=== PATIENT | female | born 1970 | race Caucasian/White ===

== ENCOUNTER 2018-02-08 12:28 | Emergency (ER) | payer OTHER ==
[2018-02-08 12:36] VITALS: BP 156/88; PULSE 78; RESP 18; TEMP 98.2
--- NOTE | 2018-02-08 13:25 | XR ---
Left forearm and left elbow HISTORY: Trauma and pain 2 views of the left forearm correlated to left elbow same date No comparisons There is an ossific density present at the level of the lateral aspect of the elbow joint, lucency pr esent through the radial head is noted. Suspect there is a joint effusion. No dislocation. IMPRESSION: Displaced comminuted radial head fracture.
[2018-02-08] MEDS ORDERED: ACET/COD 300 MG/30 MG STARTER PACK 6 TAB BTL PO STA (13:53)
--- NOTE | 2018-02-08 13:54 | ED ---
Upper Extremity HPI - General Chief Complaint: Extremity Injury, Upper Stated Complaint: Fell on arm Time Seen by Provider: 02/08/18 12:37 Source: patient Mode of arrival: ambulatory Limitations: no limitations - History of Present Illness Initial Comments: 47-year-old female who denies past medical history presenting today for chief complaint of left elbow pain. Patient states that she was at work around 11 AM when she tripped on one step falling forward on her left elbow. Patient denies hitting her head, loss of consciousness, injury to her wrist or any other extremities. Patient denies any numbness, tingling, loss sensation, coolness of the extremity or color change of the left arm. Patient does admit to pain sharp shooting of the elbow that radiates towards the forearm. Patient is able to fully extend and flex at the elbow, however she states this is painful as well as with supination and pronation. Patient states she took ibuprofen prior to presentation. She states this helped minimally. Patient applied ice the area. Patient was concerned about a fracture so she presented for evaluation today. Remainder of ROS negative, upon arrival patient appears well. No signs of acute distress, vital signs within acceptable limits. - Related Data Allergies Allergy/AdvReac Type Severity Reaction Status Date / Time dyziade Allergy Unknown Uncoded 02/08/18 12:35 Review of Systems ROS Statement: Those systems with pertinent positive or pertinent negative responses have been documented in the HPI. ROS Other: All systems not noted in ROS Statement are negative. Constitutional: Denies: fever, chills Eyes: Denies: eye pain ENT: Denies: ear pain, throat pain Respiratory: Denies: cough, dyspnea, wheezes, hemoptysis, stridor Cardiovascular: Denies: chest pain, palpitations Endocrine: Denies: fatigue Gastrointestinal: Denies: abdominal pain, nausea, vomiting, diarrhea, constipation Genitourinary: Denies: urgency, dysuria, frequency Musculoskeletal: Reports: arthralgia. Denies: back pain, joint swelling Skin: Denies: rash, lesions Neurological: Denies: headache, weakness, numbness, paresthesias, confusion, abnormal gait Past Medical History Additional Past Medical History / Comment(s): chronic pain History of Any Multi-Drug Resistant Organisms: None Reported Past Surgical History: No Surgical Hx Reported Past Psychological History: Anxiety Smoking Status: Former smoker Past Alcohol Use History: None Reported Past Drug Use History: None Reported General Exam - General Exam Comments Initial Comments: General: The patient is awake and alert, in no distress, and does not appear acutely ill. Eye: Pupils are equal, round and reactive to light, extra-ocular movements are intact. No nystagmus. There is normal conjunctiva bilaterally. No signs of icterus. Ears, nose, mouth and throat: There are moist mucous membranes and no oral lesions. Neck: The neck is supple, there is no tenderness or JVD. Cardiovascular: There is a regular rate and rhythm. No murmur, rub or gallop is appreciated. Respiratory: Lungs are clear to auscultation, respirations are non-labored, breath sounds are equal. No wheezes, stridor, rales, or rhonchi. Musculoskeletal: Upon inspection of the left elbow, there is no significant soft tissue swelling, ecchymosis or abrasions or lacerations. Is equal in comparison with the right. Patient is able to fully extend and flex at the right elbow as well as pronate and supinate. Patient does admit to increased pain with pronation and supination. Patient is able to fully flex and extend at the wrist as well as ulnar and radial deviation without difficulty. Patient denies any tenderness to palpation over the wrist shoulder or hand. Patient does admit to tenderness over the left elbow/proximal forearm. Patient is full sensation of the left upper extremity in comparison with the right including hand. Patient is able to make the okay fingers crossed, thumbs-up and extend at the wrist without difficulty, median, ulnar, radial nerves intact. Capillary refill is less than 2 seconds. Radial and ulnar pulse +2 equally bilaterally. Compartments are all soft and compressible the left upper extremity. Neurological: A&O x 3. CN II-XII intact, There are no obvious motor or sensory deficits. Coordination appears grossly intact. Speech is normal. Skin: Skin is warm and dry and no rashes or lesions are noted. Psychiatric: Cooperative, appropriate mood & affect, normal judgment. Limitations: no limitations Course Vital Signs 02/08/18 12:31 Temperature 98.2 F Pulse Rate 78 Respiratory 18 Rate Blood Pressure 156/88 O2 Sat by Pulse 99 Oximetry Medical Decision Making - Medical Decision Making X-ray revealed a radial head fracture that is comminuted and mildly displaced. Sail sign positive. Patient is neurovascular intact, compartments are soft and compressible patient was placed in a sugar tongue splint, and sling. Repeat neurovascular exam intact. Case discussed with Dr. Carlin who also reviewed all imaging. Patient was given a starter pack of Tylenol 3 for pain management. Opiate use was discussed at length including the risk of overdose, and addiction. Patient verbalized understanding. Patient was instructed to follow-up with orthopedic surgery in the next 24 hours for further evaluation and treatment. Patient verbalized understanding. Return parameters discussed in detail. At this time feel patient is stable for discharge with orthopedic surgery follow-up and return for any changes or new symptoms. Patient agrees the plan discharge in stable condition. Disposition Clinical Impression: Radial head fracture, closed Disposition: HOME SELF-CARE Condition: Good Instructions: Elbow Fracture (ED) Additional Instructions: Please use medication as discussed. Please follow-up with orthopedic surgery in next 24 hours, please call to schedule appointment. Please return to emergency room if the symptoms increase or worsen or for any other concerns. Is patient prescribed a controlled substance at d/c from ED?: No Referrals: None,Stated [Primary Care Provider] - 1-2 days Armando Glass MD [Medical Doctor] - 1-2 days Time of Disposition: 13:53
== END 2018-02-08 14:34 | disposition home or self-care (01) ==
LOC: EC 12:28
DX: S52.122A Displaced fracture of head of left radius, initial encounter for closed fracture (principal); Z87.891 Personal history of nicotine dependence; Z88.8 Allergy status to other drugs, medicaments and biological substances; W10.9XXA Fall (on) (from) unspecified stairs and steps, initial encounter; Y92.69 Other specified industrial and construction area as the place of occurrence of the external cause; Y99.0 Civilian activity done for income or pay
CPT/HCPCS: 29105; 99283

== ENCOUNTER 2018-02-19 15:39 | Emergency (ER) | payer OTHER ==
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
[2018-02-19 17:30] LABS: Appearance,Urine Clear (Clear); Bacteria,Urine Rare /hpf; Bilirubin,Urine Negative (Negative); Blood,Urine Small (Negative); Color,Urine Yellow; Glucose,Urine (UA) Negative (Negative); Ketones,Urine 2+ (Negative); Leukocyte Esterase,Urine Negative (Negative); Mucus,Urine Moderate /hpf; Nitrite,Urine Negative (Negative); PH, Urine 5.5 (5.0-8.0); Protein,Urine Trace (Negative); RBC,Urine 3 /hpf (0-5); Squamous Epithelial Cell,Urine 1 /hpf (0-4); Urobilinogen,Urine <2.0 mg/dL (<2.0); WBC,Urine 1 /hpf (0-5)
[2018-02-19 17:38] LABS: Amphetamine Screen,Urine Not Detected (NotDetected); Barbiturate Screen,Urine Not Detected (NotDetected); Benzodiazepines Screen,Urine Not Detected (NotDetected); Cocaine Screen,Urine Not Detected (NotDetected); Methadone Screen, Urine Not Detected (NotDetected); Opiate Screen,Urine Not Detected (NotDetected); Phencyclidine Screen,Urine Not Detected (NotDetected); Tricyclic Antidepressant,Urine Not Detected (NotDetected); Urn Cannabinoid Scrn Not Detected (NotDetected)
[2018-02-19 17:39] LABS: Oxycodone Screen, Urine Not Detected (NotDetected)
[2018-02-19 18:39] VITALS: BP 174/93; PULSE 89; RESP 20; TEMP 98.2
--- NOTE | 2018-02-20 07:52 | CDI ---
Documentation Clarification OP Dear Quincy ALAS Please do addendum to ED report for HPI , Physical exam and MDM. Thank you, Barbara Guzman Industrial Relations Counselor If you have any question, Please contact manager highway at [phone] [facility]
[2018-02-20 10:46] LABS: Chlamydia trachomatis rRNA Not detected (Not detected); Neisseria gonorrhoeae rRNA Not detected (Not detected)
== END 2018-02-19 18:35 | disposition home or self-care (01) ==
LOC: EC 15:39
DX: T76.21XA Adult sexual abuse, suspected, initial encounter (principal); Z87.891 Personal history of nicotine dependence; Z91.048 Other nonmedicinal substance allergy status; Z88.5 Allergy status to narcotic agent; Z91.040 Latex allergy status; Z88.8 Allergy status to other drugs, medicaments and biological substances
CPT/HCPCS: 80306; 81001; 81025; 87086; 87491; 99285

== ENCOUNTER 2018-02-26 21:19 | Emergency (ER) | payer OTHER ==
[2018-02-26 21:43] VITALS: TEMP 98.3
[2018-02-26 22:43] LABS: Appearance,Urine Cloudy (Clear); Bacteria,Urine Occasional /hpf; Bilirubin,Urine Negative (Negative); Blood,Urine Negative (Negative); Color,Urine Yellow; Glucose,Urine (UA) Negative (Negative); Ketones,Urine Negative (Negative); Leukocyte Esterase,Urine Negative (Negative); Mucus,Urine Occasional /hpf; Nitrite,Urine Negative (Negative); Protein,Urine Trace (Negative); RBC,Urine 2 /hpf (0-5); Specific Gravity,Urine 1.021 (1.001-1.035); Squamous Epithelial Cell,Urine 7 /hpf (0-4); Urobilinogen,Urine <2.0 mg/dL (<2.0); WBC,Urine 1 /hpf (0-5)
[2018-02-26 22:46] LABS: Amphetamine Screen,Urine Not Detected (NotDetected); Barbiturate Screen,Urine Not Detected (NotDetected); Benzodiazepines Screen,Urine Not Detected (NotDetected); Cocaine Screen,Urine Not Detected (NotDetected); Methadone Screen, Urine Not Detected (NotDetected); Opiate Screen,Urine Not Detected (NotDetected); Oxycodone Screen, Urine Not Detected (NotDetected); Phencyclidine Screen,Urine Not Detected (NotDetected); Tricyclic Antidepressant,Urine Not Detected (NotDetected); Urn Cannabinoid Scrn Not Detected (NotDetected)
[2018-02-26 22:46] LABS: Basophils # (A) 0.1 k/uL (0-0.2); Basophils % (A) 1 %; Eosinophils # (A) 0.3 k/uL (0-0.7); Eosinophils % (A) 3 %; HCT 41.9 % (34.0-46.0); HGB 14.1 gm/dL (11.4-16.0); Lymphocytes # (A) 2.4 k/uL (1.0-4.8); Lymphocytes % (A) 25 %; MCH 26.9 pg (25.0-35.0); MCHC 33.6 g/dL (31.0-37.0); MCV 80.1 fL (80.0-100.0); Mean Platelet Volume 7.2; Monocytes # (A) 0.5 k/uL (0-1.0); Monocytes % (A) 5 %; Neutrophils # (A) 6.1 k/uL (1.3-7.7); Neutrophils % (A) 65 %; Platelet Count 350 k/uL (150-450); RBC 5.23 m/uL (3.80-5.40); RDW 14.6 % (11.5-15.5); WBC 9.4 k/uL (3.8-10.6)
[2018-02-26 22:54] LABS: Anion Gap 11 mmol/L; Blood Urea Nitrogen 18 mg/dL (7-17); Calcium 10.3 mg/dL (8.4-10.2); Carbon Dioxide 25 mmol/L (22-30); Chloride 104 mmol/L (98-107); Glucose 119 mg/dL (74-99); Potassium 4.2 mmol/L (3.5-5.1); Sodium 140 mmol/L (137-145)
[2018-02-27 00:15] VITALS: BP 141/83; PULSE 87; RESP 20
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
== END 2018-02-27 01:14 | disposition home or self-care (01) ==
LOC: EC 21:19
DX: R45.1 Restlessness and agitation (principal); R41.0 Disorientation, unspecified; M79.7 Fibromyalgia; F41.9 Anxiety disorder, unspecified; Z87.891 Personal history of nicotine dependence; Z79.899 Other long term (current) drug therapy; Z91.040 Latex allergy status; Z91.048 Other nonmedicinal substance allergy status; Z88.5 Allergy status to narcotic agent; Z88.8 Allergy status to other drugs, medicaments and biological substances
CPT/HCPCS: 36415; 80048; 80306; 81001; 81025; 82075; 85025; 99285

== ENCOUNTER → 2018-02-27 | Outpatient (CLI) | payer OTHER ==
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
== END ==
LOC: RADCTMAIN 12:17
PROVIDERS: ATTEND Orthopaedic Surgery
DX: S52.252A Displaced comminuted fracture of shaft of ulna, left arm, initial encounter for closed fracture (principal); S52.122A Displaced fracture of head of left radius, initial encounter for closed fracture